=== PATIENT | female | born 1995 | race Caucasian/White ===

== ENCOUNTER 2016-06-23 21:24 | Emergency (ER) | payer BC, OTHER ==
[2016-06-23] MEDS ORDERED: HALOPERIDOL LACTATE 5 MG/ML 1 ML VIAL ONE (21:33)
[2016-06-23] MEDS ORDERED: LORAZEPAM 2 MG/ML 1 ML VIAL ONE (21:33)
[2016-06-23] MEDS ORDERED: HALOPERIDOL LACTATE 5 MG/ML 1 ML VIAL IM STA (21:34)
[2016-06-23] MEDS ORDERED: LORAZEPAM 2 MG/ML 1 ML VIAL IM ONE (21:45)
[2016-06-23 21:51] VITALS: O2SAT 95
[2016-06-23 21:54] VITALS: TEMP 36.7
[2016-06-23 22:01] LABS: BLOOD UREA NITROGEN 4 mg/dl (7-18); BUN/CREATININE RATIO 5.4 (10-20); CALCIUM 8.9 mg/dl (8.5-10.1); CARBON DIOXIDE 24 mmol/L (21-32); CHLORIDE 109 mmol/L (98-107); CREATININE 0.76 mg/dl (0.60-1.20); GLUCOSE 104 mg/dl (70-99); POTASSIUM 3.6 mmol/L (3.5-5.1); SODIUM 141 mmol/L (136-145)
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
[2016-06-24 07:06] VITALS: BP 100/70; PULSE 88; O2SAT 99
== END 2016-06-24 07:08 | disposition home or self-care (01) ==
LOC: C.EDB 21:27
DX: T51.91XA Toxic effect of unspecified alcohol, accidental (unintentional), initial encounter (principal)

== ENCOUNTER 2019-06-15 08:38 | Inpatient (IN) ==
[2019-06-15] MEDS: LACTATED RINGER'S 1,000 ML IV PRN ×4 (08:53→22:29)
[2019-06-15 09:39] LABS: Appearance Urine Clear (Clear); Bacteria Urine Automated Negative (Negative); Bilirubin Urine Negative (Negative); Blood Urine Negative (Negative); Cast Urine Automated 0 /lpf (0-5); Color Urine Yellow; Glucose Urine UA Negative (Negative); Ketones Urine Negative (Negative); Leukocyte Esterase Urine 2+ (Negative); Nitrite Urine Negative (Negative); Protein Urine Negative (Negative); RBC Urine Automated 0-4 /hpf (0-4); Specific Gravity Urine 1.006 (1.000-1.030); Urobilinogen Urine Negative (Negative)
[2019-06-15] MEDS ORDERED: OXYTOCIN 30 UNITS/500 ML BAG IV PRN (11:23)
--- NOTE | 2019-06-15 11:25 | History & Physical Report ---
Date of Service June 15, 2019 Assessment & Plan (1) Supervision of normal first : Patient is a 23 yo here for Labor. -GBS- , Bloodtype O+ -Amoxicillin 500mg BID x 5 days for treatment of UTI -Pitocin for contraction augmentation -Patient desires epidural; will consult anaesthesia when contractions become painful -Anticipate vaginal delivery. (2) UTI (urinary tract infection): History of Present Illness Chief Complaint: R/O Labor Primary Care Provider: Za Gandara MD Patient is a 23 at 40W and 4D by US 11/06/18 presenting for r/o of labor. Patient had plans for an induction on 06/17/19 for post dates. Her course has been relatively uncomplicated. She has been having contractions lasting roughly 45 seconds every 5-7 minute since 4AM this morning. She has noted continued movement. Denies any fluid or vaginal blood loss. Of note, patient states she has been having increased frequency and dysuria for the past 2 days. She denies any hematuria. Labs -Blood type: O+ -Antibody screen: Negative -Hgb: Pending -Hct: Pending -Wbc: Pending -Plt: Pending -Rubella: Immune -VDRL/RPR: Nonreactive -Gonorrhea: Not detected -Chlamydia: Not detected -HIV: Negative -HbSAg: Negative -GBS: Negative -Glucose tolerance x2: 1hr GTT 150, 2hr GTT pass -Cell Free DNA Screening: Declined genetic screenings -Maternal Serum AFP: Declined genetic screenings Allergies Allergy/AdvReac Type Severity Reaction Status Date / Time ceftriaxone [From Rocephin] Allergy hives, rash Verified 06/05/19 09:48 Home Medications Home Medications Medication Instructions Recorded Confirmed Type PNV cmb#95-ferrous fumarate-FA 1 tab PO DAILY 05/20/19 06/15/19 History [] ferrous sulfate [iron] 325 mg PO DAILY 05/20/19 06/15/19 History ascorbic acid (vitamin C) [Vitamin 500 mg PO DAILY 06/15/19 06/15/19 History C] cranberry 400 mg PO DAILY 06/15/19 06/15/19 History Patient History Medical History Abnormal biochemical finding on screening of mother Chlamydia ARVIND I (cervical intraepithelial neoplasia I) HPV (human papilloma virus) infection No acute medical problems Ovarian cyst Varicella vaccine Surgical History S/P cone biopsy of cervix S/P laparoscopy S/P LEEP S/P tonsillectomy S/P wisdom tooth extraction Family History Family/Other No problems noted. Social History Preferred Language: Turkmen Beliefs That Will Affect Care: None marital status: Single marital status details: ALEXA Nguyen (28) [phone] Current Living Situation: Significant Other Current Living Situation Comment: 2 dogs current occupational status: employed current occupation: [employer] Other Information That Helps Us Care for You: No Feels Safe at Home: Yes Safety Concerns: Feels Safe At This Time Smoking Status: Former smoker Tobacco Type: cigarettes ; Do You Dip or Chew Tobacco: No ; Second Hand Exposure: No ; Hx Alcohol Use: No Hx Substance Use: No Childhood Exposure to Second-Hand Smoke: No OB History Primigravida status [employer] History Hx of LEEP in 2016 Hx Ovarian Cysts Review of Systems no fever, no chills and no weakness no worsening vision no dizziness no cough and no dyspnea no chest pain, no dyspnea and no palpitations no abdominal pain, no nausea, no vomiting, no constipation and no diarrhea/loose stools + dysuria and + urinary frequency; no hematuria no headache(s) Physical Exam Constitutional: WD/WN, vitals as above Eyes: PERRL, conjunctivae normal, anicteric sclerae ENMT: external ear and nose normal, oropharynx normal Neck: normal visual inspection Respiratory: normal respiratory effort, lungs clear to auscultation Cardiovascular: Rate/Rhythm: regular rate and regular rhythm Heart Sounds: normal S1 and normal S2; no murmur Extremities: no calf tenderness and no edema Gastrointestinal (Abdomen): Inspection/Auscultation: + abdomen distended (Gravid) and normal bowel sounds Percussion/Palpation: abdomen soft; abdomen nontender Contractions palpable. Psychiatric: A+Ox3, euthymic affect Genitourinary: OB Exam Abdomen: + fundal height (Term), + heart tones, + vertex and + estimated weight (7 lbs) Manual OB Exam: + cervical dilation fingertip, + cervical effacement 100% and + station -2 OB Exam Monitor Tracing: + category II and + variable decelerations Results & Data Vital Signs (Past 12 Hours) Vital Signs Temp Pulse Resp BP 06/15/19 08:55 36.8 C 22 06/15/19 08:49 36.8 C 101 H 22 126/89 Code Status & VTE Plan VTE Prophylaxis Plan VTE Prophylaxis will be ordered: No Reason for no VTE drug order: Contraindicated Monitoring External Monitor Category 2, some variable decels noted. FHR 132 bpm Supervising Physician Co-Signing Physician Notes Patient seen and evaluated and agree with the above findings and plan. Coding Level of Care Code None Diagnoses Supervision of normal first Z34.00 UTI (urinary tract infection) N39.0 Resident Activity Tracking Resident Involvement: Resident Care Provided Care Provided: OB Delivery
[2019-06-15 11:47] LABS: Hematocrit (blood only) 37.8 % (37-47); Hemoglobin 12.7 g/dL (12.0-16.0); Mean Corpuscular Hemoglobin 30.9 pg (25-34); Mean Platelet Volume 9.3 fL (7.4-10.4); Platelet Count 203 K/uL (130-400); RDW Standard Deviation 43.5 fL (36.4-46.3); Red Blood Count 4.11 M/uL (4.2-5.4); White Blood Count 13.68 K/uL (4.8-10.8)
[2019-06-15] MEDS: OXYTOCIN 30 UNITS/500 ML BAG IV PRN ×2 (11:51→20:05)
[2019-06-15] MEDS: AMOXICILLIN 500 MG CAP PO SCH ×2 (11:57→21:00)
[2019-06-15 12:04] LABS: Mean Corpuscular Hgb Conc 33.6 g/dL (32-36)
[2019-06-15] MEDS ORDERED: ePHEDrine sulfate 50 MG/ML AMP ONE (12:43)
[2019-06-15] MEDS ORDERED: fentaNYL citrate 100 MCG/2 ML VIAL ONE (12:43)
[2019-06-15] MEDS ORDERED: BUPIVACAINE 0.25% 30 ML VIAL ONE (12:44)
[2019-06-15] MEDS ORDERED: fentaNYL 2MCG/ML ROPIV 1.25MG/ML 100 ML BAG EPI ONE (12:44)
[2019-06-15] MEDS ORDERED: ONDANSETRON INJ 2 MG/ML 2 ML VIAL IV PRN (13:14)
[2019-06-15] MEDS ORDERED: NALOXONE HCL 0.4 MG/1 ML VIAL/CARP IV PRN (13:14)
[2019-06-15] MEDS ORDERED: ePHEDrine sulfate 50 MG/ML AMP IV PRN (13:14)
[2019-06-15] MEDS ORDERED: NALBUPHINE HCL INJ 10 MG/ML AMP IV PRN (13:14)
[2019-06-15] MEDS ORDERED: NALOXONE HCL 1 MG in SODIUM CHLORIDE 0.9% 1000ML 1,000 ML IV PRN (13:14)
[2019-06-15] MEDS ORDERED: DiphenhydrAMINE HCL 50 MG/ML VIAL IV PRN (13:14)
--- NOTE | 2019-06-15 13:19 | Anesthesiology Consultation ---
Date of Service June 15, 2019 Assessment & Plan Chart Review Chart Review: Patient NOT seen in Pre Admission Testing and Acceptable Risk for Labor Epidural Consults Requested none ASA ASA2 Proposed Anesthesia Anesthesia Type: Labor Epidural and CSE Risk / Benefits Reviewed With: PT / POA / Parent / Guardian, Accepts Plan and Informed Consent Obtained History Height/Weight Height: 5 ft 3 in Weight: 73.936 kg Allergies Allergy/AdvReac Type Severity Reaction Status Date / Time ceftriaxone [From Rocephin] Allergy hives, rash Verified 06/05/19 09:48 Medications Home Medications Medication Instructions Recorded Confirmed Last Taken PNV cmb#95-ferrous fumarate-FA 1 tab PO DAILY 05/20/19 06/15/19 06/14/19 22:30 [] ferrous sulfate [iron] 325 mg PO DAILY 05/20/19 06/15/19 06/14/19 22:30 ascorbic acid (vitamin C) [Vitamin 500 mg PO DAILY 06/15/19 06/15/19 06/14/19 22:30 C] cranberry 400 mg PO DAILY 06/15/19 06/15/19 06/15/19 06:00 Active Medications Generic Name Dose Route Start Last Admin Trade Name Freq PRN Reason Stop Dose Admin Amoxicillin 500 mg 06/15/19 11:00 06/15/19 11:57 Amoxil PO 06/20/19 10:59 500 mg BID JUDI Administration Oxytocin 30 units in 500 mls @ 4 mls/hr 06/15/19 11:20 06/15/19 12:30 Pitocin IV 06/17/19 11:19 0.24 units/hr .Q24H PRN 4 mls/hr Labor Induction/Augmentation Titration Protocol 0.24 UNITS/HR Lactated Ringer's 1,000 mls @ 125 mls/hr 06/15/19 11:23 06/15/19 12:43 Lr IV 06/17/19 11:22 999 mls/hr .Q8H PRN Administration L&D Protocol Protocol NPO Date Last Intake of Fluids: 06/15/19 Time Last Intake of Fluids: 11:00 Date Last Intake of Solids: 06/15/19 Time Last Intake of Solids: 08:00 Past Medical History Medical History Abnormal biochemical finding on screening of mother Chlamydia ARVIND I (cervical intraepithelial neoplasia I) HPV (human papilloma virus) infection No acute medical problems Ovarian cyst Varicella vaccine Exercise / Class Metabolic Activity II 4-5 Yardwork/Stairs/Walk up hill Past Family History Family History Family/Other No problems noted. Past Surgical History Surgical History S/P cone biopsy of cervix S/P laparoscopy S/P LEEP S/P tonsillectomy S/P wisdom tooth extraction Past Anesthesia History No Hx of Anesthesia Complications and No Family Hx of Anesthesia Complications History of PONV No Hx of PONV and No Hx of Motion Sickness Social History Smoking Status: Former smoker tobacco type: cigarettes Do You Dip or Chew Tobacco: No Hx Alcohol Use: No Hx Substance Use: No substance use type: does not use Review of Systems no chest pain or sob Physical Exam Vital Signs Last Vital Signs Temp 36.8 C 06/15/19 08:55 Pulse 100 H 06/15/19 13:11 Resp 22 06/15/19 08:55 BP 116/75 06/15/19 13:02 Pulse Ox 99 06/15/19 13:11 ENMT Mouth: no TMJ abnormality Thyromental Distance: > or= 3.5 Finger Breadths Mallampati Class: II Neck normal visual inspection Respiratory normal respiratory effort Auscultation: lungs clear to auscultation bilaterally Cardiovascular Rate/Rhythm: regular rate and regular rhythm Musculoskeletal Spine: normal cervical ROM Neurologic moves all extremities Psychiatric Orientation: alert and oriented x 3 Testing Laboratory Results 06/15/19 11:34 Urine Color Yellow 06/15/19 09:30 Urine Appearance Clear (Clear) 06/15/19 09:30 Urine pH 7.0 (4.5-7.5) 06/15/19 09:30 Ur Specific [place] 1.006 (1.000-1.030) 06/15/19 09:30 Urine Protein Negative (Negative) 06/15/19 09:30 Urine Glucose (UA) Negative (Negative) 06/15/19 09:30 Urine Ketones Negative (Negative) 06/15/19 09:30 Urine Nitrite Negative (Negative) 06/15/19 09:30 Ur Leukocyte Esterase 2+ (Negative) H 02/17/20 09:30 Urine WBC (Auto) 10-30 /hpf (0-5) H 06/15/19 09:30 Urine RBC (Auto) 0-4 /hpf (0-4) 06/15/19 09:30 U Hyaline Cast (Auto) 0 /lpf (0-5) 06/15/19 09:30 U Epithel Cells (Auto) 5-10 /lpf (0-5) H 06/15/19 09:30 Urine Bacteria (Auto) Negative (Negative) 06/15/19 09:30
--- NOTE | 2019-06-15 16:04 | Labor Progress Brief Note ---
Date of Service June 15, 2019 Subjective Reason For Note: Routine Evaluation Assessment & Plan (1) Supervision of normal first : 23yo G1. Early labor/ IOL 1. Fetus: Cat 1 2. Labor: Continue oxytocin. ROM - Mec 3. GBS negative (2) UTI (urinary tract infection): Physical Exam Genitourinary: Manual OB Exam: + cervical dilation 2 cm, + cervical effacement 100%, + station -2 and + amniotic fluid meconium OB Exam Monitor Tracing: + external FHT monitor used, + external uterine monitor used, + category I and + normal FHT variability; no early decelerations present, no late decelerations present and no variable decelerations Results & Data Vital Signs (Past 12 Hours) Vital Signs Temp Pulse Resp BP Pulse Ox 06/15/19 15:56 92 H 96 06/15/19 15:51 95 H 128/78 97 06/15/19 15:46 88 92 06/15/19 15:41 94 H 96 06/15/19 15:37 88 104/64 06/15/19 15:36 92 H 95 06/15/19 15:31 79 95 06/15/19 15:26 90 95 06/15/19 15:21 91 H 114/56 L 95 06/15/19 15:16 95 H 94 06/15/19 15:11 78 94 06/15/19 15:06 78 109/66 96 06/15/19 15:03 36.7 C 16 06/15/19 15:01 95 H 97 06/15/19 14:56 104 H 98 06/15/19 14:51 81 98 06/15/19 14:50 86 124/76 06/15/19 14:46 92 H 98 06/15/19 14:41 91 H 96 06/15/19 14:36 91 H 96 06/15/19 14:35 91 H 129/81 06/15/19 14:31 94 H 96 06/15/19 14:26 101 H 95 06/15/19 14:22 91 H 94 06/15/19 14:21 89 94 06/15/19 14:18 84 126/74 06/15/19 14:17 88 94 06/15/19 14:16 82 95 06/15/19 14:12 90 123/79 06/15/19 14:11 89 98 06/15/19 14:07 100 H 123/77 06/15/19 14:06 99 H 96 06/15/19 14:01 81 125/81 95 06/15/19 13:59 83 121/77 06/15/19 13:57 92 H 126/76 06/15/19 13:56 96 H 95 06/15/19 13:55 97 H 124/89 06/15/19 13:53 102 H 126/78 06/15/19 13:51 99 H 125/74 96 06/15/19 13:49 101 H 115/69 06/15/19 13:47 105 H 123/70 06/15/19 13:46 106 H 97 06/15/19 13:45 96 H 117/68 06/15/19 13:43 105 H 119/68 06/15/19 13:41 93 H 124/68 97 06/15/19 13:39 98 H 120/69 94 06/15/19 13:37 93 H 112/55 L 06/15/19 13:36 95 H 96 06/15/19 13:35 102 H 119/69 06/15/19 13:33 96 H 131/67 06/15/19 13:31 95 H 98 06/15/19 13:30 92 H 128/66 06/15/19 13:26 90 99 06/15/19 13:23 100 H 135/88 06/15/19 13:21 104 H 100 06/15/19 13:16 100 H 97 06/15/19 13:11 100 H 99 06/15/19 13:06 90 98 06/15/19 13:02 99 H 116/75 06/15/19 13:01 105 H 98 06/15/19 11:56 98 H 121/75 06/15/19 08:55 36.8 C 22 06/15/19 08:49 36.8 C 101 H 22 126/89 Coding Level of Care Code None Diagnoses Supervision of normal first Z34.00 UTI (urinary tract infection) N39.0
[2019-06-15] MEDS: fentaNYL 2MCG/ML ROPIV 1.25MG/ML 100 ML BAG EPI PRN (20:42)
--- NOTE | 2019-06-15 20:56 | Labor Progress Brief Note ---
Date of Service June 15, 2019 Subjective Reason For Note: Routine Evaluation Assessment & Plan (1) Supervision of normal first : 23yo G1. Early labor/ IOL 1. Fetus: Cat 1 2. Labor: Progressing well. Continue oxytocin. ROM - Mec 3. GBS negative (2) UTI (urinary tract infection): Physical Exam Genitourinary: Manual OB Exam: + cervical dilation 5 cm, + cervical effacement 100%, + station 0 and + amniotic fluid meconium OB Exam Monitor Tracing: + external FHT monitor used, + external uterine monitor used, + category I and + normal FHT variability; no early decelerations present, no late decelerations present and no variable decelerations Results & Data Vital Signs (Past 12 Hours) Vital Signs Temp Pulse Resp BP Pulse Ox 06/15/19 20:52 104 H 88 L 06/15/19 20:51 103 H 134/84 94 06/15/19 20:46 90 96 06/15/19 20:41 89 96 06/15/19 20:37 83 114/61 06/15/19 20:36 86 93 06/15/19 20:31 98 H 95 06/15/19 20:26 85 92 06/15/19 20:21 93 H 94 06/15/19 20:20 96 H 100/56 L 06/15/19 20:16 97 H 94 06/15/19 20:11 93 H 93 06/15/19 20:07 36.6 C 06/15/19 20:06 84 94 06/15/19 20:05 86 105/55 L 06/15/19 20:01 89 93 06/15/19 19:56 81 93 06/15/19 19:51 85 94 06/15/19 19:50 83 105/56 L 06/15/19 19:46 87 92 06/15/19 19:41 86 92 06/15/19 19:36 86 93 06/15/19 19:35 77 105/59 L 06/15/19 19:31 83 93 06/15/19 19:26 102 H 96 06/15/19 19:21 99 H 118/68 95 06/15/19 19:16 87 95 06/15/19 19:11 94 H 94 06/15/19 19:10 36.7 C 94 H 16 122/79 06/15/19 19:06 93 H 94 02/17/20 19:05 91 H 122/79 20 19:01 93 H 96 20 18:56 89 94 20 18:52 88 117/67 20 18:51 88 95 20 18:46 90 94 20 18:41 97 H 95 20 18:36 90 116/76 95 20 18:31 91 H 95 20 18:26 104 H 96 20 18:21 88 121/74 93 06/15/19 18:16 106 H 95 06/15/19 18:11 103 H 95 06/15/19 18:06 98 H 96 06/15/19 18:05 103 H 125/80 06/15/19 18:01 109 H 95 06/15/19 17:56 36.7 C 98 H 18 95 06/15/19 17:51 92 H 95 06/15/19 17:50 80 121/75 06/15/19 17:46 92 H 97 20 17:41 92 H 97 20 17:36 91 H 97 20 17:35 99 H 122/73 06/15/19 17:31 94 H 97 06/15/19 17:26 84 96 20 17:21 82 95 20 17:20 87 120/68 20 17:16 80 96 20 17:11 93 H 96 06/15/19 17:06 83 120/75 95 20 17:01 87 95 20 17:00 18 20 16:56 87 96 20 16:51 84 96 1720 16:50 78 110/57 L 20 16:46 92 H 95 1720 16:41 90 93 1720 16:36 85 95 1720 16:35 93 H 117/68 20 16:31 81 95 20 16:26 96 H 97 20 16:21 90 97 20 16:20 92 H 110/62 20 16:16 90 96 06/15/19 16:11 94 H 96 06/15/19 16:06 88 114/61 94 06/15/19 16:01 36.7 C 88 18 96 06/15/19 15:56 92 H 96 06/15/19 15:51 95 H 128/78 97 06/15/19 15:46 88 92 06/15/19 15:41 94 H 96 06/15/19 15:37 88 104/64 06/15/19 15:36 92 H 95 06/15/19 15:31 79 95 06/15/19 15:26 90 95 06/15/19 15:21 91 H 114/56 L 95 06/15/19 15:16 95 H 94 06/15/19 15:11 78 94 06/15/19 15:06 78 109/66 96 06/15/19 15:03 36.7 C 16 06/15/19 15:01 95 H 97 06/15/19 14:56 104 H 98 06/15/19 14:51 81 98 06/15/19 14:50 86 124/76 06/15/19 14:46 92 H 98 06/15/19 14:41 91 H 96 06/15/19 14:36 91 H 96 06/15/19 14:35 91 H 129/81 06/15/19 14:31 94 H 96 06/15/19 14:26 101 H 95 06/15/19 14:22 91 H 94 06/15/19 14:21 89 94 06/15/19 14:18 84 126/74 06/15/19 14:17 88 94 06/15/19 14:16 82 95 06/15/19 14:12 90 123/79 06/15/19 14:11 89 98 06/15/19 14:07 100 H 123/77 06/15/19 14:06 99 H 96 06/15/19 14:01 81 125/81 95 06/15/19 13:59 83 121/77 06/15/19 13:57 92 H 126/76 06/15/19 13:56 96 H 95 06/15/19 13:55 97 H 124/89 06/15/19 13:53 102 H 126/78 06/15/19 13:51 99 H 125/74 96 06/15/19 13:49 101 H 115/69 06/15/19 13:47 105 H 123/70 06/15/19 13:46 106 H 97 06/15/19 13:45 96 H 117/68 06/15/19 13:43 105 H 119/68 06/15/19 13:41 93 H 124/68 97 06/15/19 13:39 98 H 120/69 94 06/15/19 13:37 93 H 112/55 L 06/15/19 13:36 95 H 96 06/15/19 13:35 102 H 119/69 06/15/19 13:33 96 H 131/67 06/15/19 13:31 95 H 98 06/15/19 13:30 92 H 128/66 06/15/19 13:26 90 99 06/15/19 13:23 100 H 135/88 06/15/19 13:21 104 H 100 06/15/19 13:16 100 H 97 06/15/19 13:11 100 H 99 06/15/19 13:06 90 98 06/15/19 13:02 99 H 116/75 06/15/19 13:01 105 H 98 06/15/19 11:56 98 H 121/75 06/15/19 08:55 36.8 C 22 Coding Level of Care Code None Diagnoses Supervision of normal first Z34.00 UTI (urinary tract infection) N39.0
[2019-06-15] MEDS ORDERED: ACETAMINOPHEN 500 MG TAB PO PRN (22:21)
[2019-06-15] MEDS ORDERED: Nursing to Pharmacy Communication ONE (23:38)
[2019-06-16] MEDS: fentaNYL 2MCG/ML ROPIV 1.25MG/ML 100 ML BAG EPI PRN (01:21)
[2019-06-16] MEDS ORDERED: bisacodyL 10 MG SUPP PR PRN (03:05)
[2019-06-16] MEDS ORDERED: DIPHTHERIA/TETANUS/PERTUSSIS 0.5 ML SYR/VIAL IM ONE (03:05)
[2019-06-16] MEDS ORDERED: HYDROCORTISONE ACETATE 25 MG SUPP PR PRN (03:05)
[2019-06-16] MEDS ORDERED: OXYTOCIN 30 UNITS/500 ML BAG IV PRN (03:05)
[2019-06-16] MEDS ORDERED: BENZOCAINE 20% AER SPR 82.5 GM CAN EXT PRN (03:05)
[2019-06-16] MEDS ORDERED: SUPERCREAM 0.870% 15 GM JAR EXT PRN (03:05)
[2019-06-16] MEDS: IBUPROFEN 600 MG TAB PO PRN ×3 (03:59→13:28)
[2019-06-16] MEDS: ACETAMINOPHEN 325 MG TAB PO PRN ×2 (06:13→10:56)
--- NOTE | 2019-06-16 07:28 | Anesthesia Procedure Note ---
Date of Service June 16, 2019 Anesthesia Post Epidural Note Vital Signs Vital Signs: Temp Pulse Resp BP Pulse Ox 98.2 F 91 H 18 112/71 95 06/16/19 06:25 06/16/19 06:25 06/16/19 06:25 06/16/19 06:25 06/16/19 02:56 Pain Intensity Abdomen: Pain Intensity: 1 Notes Mental Status: alert / awake / arousable and participated in evaluation Nausea / Vomiting: adequately controlled Pain: adequately controlled Airway Patency, RR, SpO2: stable & adequate BP & HR: stable & adequate Hydration State: stable & adequate Neuraxial Anesthesia: was administered and sensory block is resolving Anesthetic Complications: no major complications apparent and Pt Satisfied with anesthetic care Epidural: Removed without complications and With tip intact
[2019-06-16] MEDS: PRENATAL VITAMIN 1 TAB PO SCH (07:54)
[2019-06-16] MEDS: DOCUSATE SODIUM 100 MG CAP PO SCH ×2 (07:54→21:12)
[2019-06-16] MEDS: AMOXICILLIN 500 MG CAP PO SCH ×2 (07:55→21:12)
--- NOTE | 2019-06-16 08:48 | Delivery Summary ---
DATE OF OPERATION: 06/16/2019 PROCEDURE: Normal spontaneous vaginal delivery with bilateral periurethral laceration repair. SURGEON: Nahun Smith MD PREOPERATIVE DIAGNOSES: 1. Single intrauterine at term. 2. History of LEEP POSTOPERATIVE DIAGNOSES 1. Single intrauterine at term. 2. History of LEEP 3. Status post delivery. ESTIMATED BLOOD LOSS: 300 mL. DRAINS: None. FLUIDS: Continuous lactated ringer. URINE OUTPUT: Not measured. COMPLICATIONS: None. FINDINGS: Viable female with weight of 6 pounds 11 ounces and Apgars of 8 and 9 at 1 and 5 minutes respectively. DESCRIPTION OF PROCEDURE: The patient progressed to 10 cm dilated, 100% effaced, +2 station, pushed over intact perineum with epidural anesthesia and delivered a viable female with weight and Apgars as noted above. Head of the delivered in TESS position, rest into right transverse. A loose nuchal cord was noted which was easily reduced. Body and shoulders quickly followed. was noted to be vigorous soon after delivery. A 1-minute delayed cord clamping was initiated for which the cord was double clamped and cut. was able to remain on maternal abdomen. Cord blood was obtained. Attention was then turned to deliver the placenta, delivered intact, 3-vessel cord, gentle cord traction. On inspection of perineum, vagina, and cervix, there was noted to be bilateral periurethral lacerations repaired with interrupted stitch. Needle, sponge and instrument counts were correct at the completion of the case. I attest to the content of the Intraoperative Record and any orders documented therein. Any exceptions are noted below. [facility]
[2019-06-17] MEDS: IBUPROFEN 600 MG TAB PO PRN ×3 (00:09→19:18)
[2019-06-17 07:21] LABS: Hematocrit (blood only) 36.3 % (37-47)
--- NOTE | 2019-06-17 08:16 | Obstetrical Progress Note ---
Date of Service June 17, 2019 Assessment & Plan (1) Encounter for care and examination after delivery: satisfactory course discharge to home follow up in 6 weeks Day #:: 2 Subjective Ambulation: ambulating normally Voiding: no voiding problems Passing Gas:: Yes Diet Tolerance:: regular diet Lochia:: Small Feeding Type:: breast feeding Review of Systems All systems reviewed & are unremarkable except as noted in HPI & below Physical Exam Constitutional WD/WN, vitals as above Psychiatric A+Ox3, euthymic affect Genitourinary OB Exam Abdomen: + fundal height Fundus: + firm and + relation to umbilicus (3 below U) Results & Data Vital Signs (Past 12 Hours) Vital Signs Temp Pulse Resp BP Pulse Ox 06/17/19 00:10 98.1 F 80 20 114/77 98
[2019-06-17] MEDS: DOCUSATE SODIUM 100 MG CAP PO SCH ×2 (08:57→20:46)
[2019-06-17] MEDS: PRENATAL VITAMIN 1 TAB PO SCH (08:57)
[2019-06-17] MEDS: AMOXICILLIN 500 MG CAP PO SCH ×2 (08:58→20:47)
[2019-06-17] MEDS ORDERED: bisacodyL 5 MG TABEC PO SCH (20:00)
--- NOTE | 2019-06-18 06:47 | Obstetrical Progress Note ---
Date of Service <Eloy Grijalva DO - Last Filed: 06/18/19 06:46> June 18, 2019 Assessment & Plan <DO Berto Aiken Last Filed: 06/18/19 06:46> (1) Supervision of normal first : -PPD#2 -Vitals reviewed, WNL (Tmax 36.9) - GBS -, Blood Type O+ - Clinically stable. - Feels well today. Eating well, voiding well, ambulating well. - Pain well controlled. - Routine post- care - Continue Amoxicillin for UTI treatment - After discharge will have [address] Sarah Easton #:: 2 Subjective <Eloy Grijalva DO - Last Filed: 06/18/19 06:46> Ambulation: ambulating normally Voiding: no voiding problems Passing Gas:: Yes Diet Tolerance:: regular diet Lochia:: Small Feeding Type:: breast feeding Current Pain Level(1-10): 1 (improved with analgesics) Patient is a 23 PPD#2. Patient states that she is feeling well today and that her pain is well controlled. She has no other complaints at this time. Constitutional: no fever and no chills Respiratory: no cough, no dyspnea and no wheezing Cardiovascular: no chest pain, no dyspnea, no palpitations, no edema and no calf pain Breast: no breast pain Gastrointestinal: no abdominal pain, no nausea and no vomiting Genitourinary (female): no dysuria and no difficulty urinating Neurologic: no headache(s) Physical Exam <DO Berto Aiken Last Filed: 06/18/19 06:46> Constitutional WD/WN, vitals as above Respiratory normal respiratory effort, lungs clear to auscultation Cardiovascular Rate/Rhythm: regular rate and regular rhythm Heart Sounds: normal S1 and normal S2; no click, no gallop, no murmur and no cardiac rub Extremities: + edema (+1); no calf tenderness Gastrointestinal (Abdomen) Inspection/Auscultation: abdomen normal to inspection and normal bowel sounds Percussion/Palpation: abdomen soft; abdomen nontender Genitourinary OB Exam Abdomen: + fundal height Fundus: + firm and + relation to umbilicus (2cm below); not tender and not boggy Results & Data <Eloy Hernandezlino DO Thomson Last Filed: 06/18/19 06:46> Vital Signs (Past 12 Hours) Vital Signs Temp Pulse Resp BP Pulse Ox 06/18/19 00:10 36.8 C 81 20 123/75 100 <Anna Marie Mario DO - Last Filed: 06/18/19 07:25> Co-Signing Physician Notes Resident Physician Supervision Note: I interviewed and examined the patient. Discussed with Dr. Grijalva and agree with findings and plan as documented in the note. Any exceptions or clarifications are listed here: PPD#2 doing well. DC home today. Instructions reviewed. Documented By: Anna Marie Mario DO Resident Activity Tracking <Eloy Grijalva DO - Last Filed: 06/18/19 06:46> Resident Involvement: Resident Care Provided Care Provided: OB Delivery
[2019-06-18] MEDS: AMOXICILLIN 500 MG CAP PO SCH (09:03)
[2019-06-18] MEDS: DOCUSATE SODIUM 100 MG CAP PO SCH (09:03)
[2019-06-18] MEDS: PRENATAL VITAMIN 1 TAB PO SCH (09:03)
== END 2019-06-18 14:30 | disposition home or self-care (01) | DRG 806 ==
LOC: OPB 08:38 → 4S1 08:39 → 4S2 06-16 06:15

== ENCOUNTER 2021-06-20 07:39 | Inpatient (IN) ==
[2021-06-20] MEDS ORDERED: OXYTOCIN 30 UNITS/500 ML BAG IV PRN ×3 (08:47→19:11)
--- NOTE | 2021-06-20 09:14 | History & Physical Report ---
Date of Service June 20, 2021 Assessment & Plan (1) Polyhydramnios: (2) Gestational diabetes: (3) Supervision of normal intrauterine in multigravida: Plan: Irina is a 25-year-old 001 at 39 weeks 2 days gestational age presents for induction of labor secondary to mild polyhydramnios. 1. Fetus: Cat 1 2. Labor: S/p subramanian. Pitocin per regular protocol 3. GBS negative. 4. Vitals WNL 5. A1gDM: BG x1 Admission and Anticipated Discharge Date Admission Date: June 20, 2021 History of Present Illness Primary Care Provider: Za Gandara MD Irina is a 25-year-old 001 admitted at 39 weeks 2 days gestational age for induction of labor secondary to mild polyhydramnios. Patient doing well today denying significant labor symptoms. also complicated by diet- controlled gestational diabetes. Patient has a history of a prior vaginal delivery without complication. OB Labs: Blood Type O Positive 11/18/20 Antibody Screen NEGATIVE 11/18/20 Hemoglobin 12.3 g/dL (12.0-16.0)B 04/07/21 Hematocrit 36.9 % (37-47) L 04/07/21 Mean Corpuscular Volume 91.2 fL (80-100) 11/18/20 Platelet Count 326 K/uL (130-400) 11/18/20 Rubella IgG Antibody Immune (Immune) 11/18/20 Rapid Plasma Reagin Nonreactive (Nonreactive) 11/18/20 Hepatitis B Surface Antigen Neg (Neg) 11/18/20 HIV (1&2) Ab and P24 Ag, 4th Gener Neg (Neg) 11/18/20 Glucose 1 Hour 50 gm Load 140 mg/dl (70-130) H 01/23/21 OB Optional Labs: Chlamydia trachomatis RNA NOT DETECTED (NOT DETECTED) 11/18/20 Neisseria gonorrhoeae RNA NOT DETECTED (NOT DETECTED) 11/18/20 Thyroid Stimulating Hormone (TSH) 1.390 uIu/ml (0.300-4.500) 03/21/18 Labs Reviewed: SMA/CF/cfDNA declined - SLN failed 28 week 2 hr gtt--akh Allergies Allergy/AdvReac Type Severity Reaction Status Date / Time ceftriaxone [From Rocephin] Allergy hives, rash Verified 06/19/21 09:55 Home Medications Medication Instructions Recorded Confirmed Type ascorbic acid (vitamin C) 500 mg 500 mg PO DAILY 06/15/19 06/20/21 History tablet (Vitamin C) prenat.vits,vishal,wkv-fjxc-eudci 1 tab PO DAILY 11/07/20 06/20/21 History acetone (urine) test (Ketone Urine #50 ea 03/14/21 06/19/21 Rx Test) blood sugar diagnostic (OneTouch #150 ea 03/14/21 06/19/21 Rx Verio test strips) blood-glucose meter (OneTouch #1 ea 03/14/21 06/19/21 Rx Verio Flex meter) lancets 33 gauge (OneTouch Delica #150 ea 03/14/21 06/19/21 Rx Plus Lancet) Patient History Medical History Abnormal biochemical finding on screening of mother Chlamydia ARVIND I (cervical intraepithelial neoplasia I) HPV (human papilloma virus) infection No acute medical problems Ovarian cyst anxiety Varicella vaccine Surgical History S/P cone biopsy of cervix S/P laparoscopy S/P LEEP S/P tonsillectomy S/P wisdom tooth extraction Family History Family/Other No problems noted. Social History Smoking Status: Never smoker Second Hand Exposure: No; Hx Alcohol Use: No Hx Substance Use: No Preferred Language: Romansh Communication Ability: Effective Visual Impairment: No Limitations Division Traffic Superintendent Required: No Beliefs That Will Affect Care: None marital status: Single marital status details: ALEXA Nguyen (30) [phone] Current Living Situation: Significant Other Current Living Situation Comment: lives with daphnie, daughter, 1dog, 3 cats, current occupational status: employed current occupation: [employer] Other Information That Helps Us Care for You: No Feels Safe at Home: Yes Childhood Exposure to Second-Hand Smoke: No Assistive Devices: None Physical Exam Gastrointestinal (Abdomen): Inspection/Auscultation: abdomen not distended Percussion/Palpation: abdomen soft; abdomen nontender, no guarding and abdomen not rigid Genitourinary: normal external appearance OB Exam Abdomen: + vertex (BY US) Manual OB Exam: + cervical dilation (2.5), + cervical effacement 50% and + station high OB Exam Monitor Tracing: + external FHT monitor used, + external uterine monitor used, + category I and + normal FHT variability; no early decelerations present, no late decelerations present and no variable decelerations Results & Data ([facility]) Vital Signs (Past 12 Hours) Vital Signs Temp Pulse Resp BP 06/20/21 07:58 114 H 120/66 06/20/21 07:51 36.9 C 114 H 18 120/66 Coding Level of Care Code None Diagnoses Polyhydramnios O40.9XX0 Gestational diabetes O24.419 Supervision of normal intrauterine in multigravida Z34.80
[2021-06-20 09:28] LABS: Hematocrit (blood only) 32.2 % (37-47); Hemoglobin 10.7 g/dL (12.0-16.0); Mean Corpuscular Hemoglobin 30.1 pg (25-34); Mean Corpuscular Hgb Conc 33.2 g/dL (32-36); Mean Corpuscular Volume 90.7 fL (80-100); Mean Platelet Volume 8.9 fL (7.4-10.4); Platelet Count 202 K/uL (130-400); RDW Coefficient of Variation 13.6 % (11.5-14.5); Red Blood Count 3.55 M/uL (4.2-5.4); White Blood Count 10.59 K/uL (4.8-10.8)
[2021-06-20] MEDS: LACTATED RINGER'S 1,000 ML IV PRN ×2 (09:35→15:44)
--- NOTE | 2021-06-20 13:10 | Labor Progress Brief Note ---
Date of Service June 20, 2021 Subjective Reason For Note: Routine Evaluation Assessment & Plan (1) Polyhydramnios: (2) Gestational diabetes: (3) Supervision of normal intrauterine in multigravida: Plan: Irina is a 25-year-old 001 at 39 weeks 2 days gestational age presents for induction of labor secondary to mild polyhydramnios. 1. Fetus: Cat 1 2. Labor: S/p subramanian. Pitocin per regular protocol. Unable to AROM due to high station 3. GBS negative. 4. Vitals WNL 5. A1gDM: BG x1 Admission and Anticipated Discharge Date Admission Date: June 20, 2021 Physical Exam Genitourinary: Manual OB Exam: + cervical dilation 3 cm, + cervical effacement 50% and + station high OB Exam Monitor Tracing: + external FHT monitor used, + external uterine monitor used, + category I and + normal FHT variability; no early decelerations present, no late decelerations present and no variable decelerations Results & Data ([facility]) Vital Signs (Past 12 Hours) Vital Signs Temp Pulse Resp BP 06/20/21 12:02 100 H 115/59 L 06/20/21 11:20 37.0 C 06/20/21 11:19 100 H 116/59 L 06/20/21 09:39 111 H 129/68 06/20/21 07:58 114 H 120/66 06/20/21 07:51 36.9 C 114 H 18 120/66 Coding Level of Care Code None Diagnoses Polyhydramnios O40.9XX0 Gestational diabetes O24.419 Supervision of normal intrauterine in multigravida Z34.80
[2021-06-20] MEDS ORDERED: ePHEDrine sulfate 50 MG/ML AMP ONE (15:34)
[2021-06-20] MEDS ORDERED: fentaNYL citrate 100 MCG/2 ML VIAL ONE (15:34)
[2021-06-20] MEDS ORDERED: SODIUM CHLORIDE 0.9% INJ 10 ML VIAL ONE (15:34)
[2021-06-20] MEDS ORDERED: BUPIVACAINE 0.25% 30 ML VIAL ONE (15:34)
[2021-06-20] MEDS ORDERED: fentaNYL 2MCG/ML ROPIVACAINE 1.25MG/ML 100 ML BAG EPI ONE (15:35)
[2021-06-20] MEDS ORDERED: NALOXONE HCL 1 MG in SODIUM CHLORIDE 0.9% 1000ML 1,000 ML IV PRN (15:54)
[2021-06-20] MEDS ORDERED: ePHEDrine sulfate 50 MG/ML AMP IV PRN (15:54)
[2021-06-20] MEDS ORDERED: ONDANSETRON INJ 2 MG/ML 2 ML VIAL IV PRN (15:54)
[2021-06-20] MEDS ORDERED: NALBUPHINE HCL INJ 10 MG/ML AMP IV PRN (15:54)
[2021-06-20] MEDS ORDERED: diphenhydrAMINE 50 MG/ML VIAL IV PRN (15:54)
[2021-06-20] MEDS ORDERED: fentaNYL 2MCG/ML ROPIVACAINE 1.25MG/ML 100 ML BAG EPI PRN (15:54)
[2021-06-20] MEDS ORDERED: NALOXONE HCL 0.4 MG/1 ML VIAL/CARP IV PRN (15:54)
--- NOTE | 2021-06-20 15:56 | Anesthesiology Consultation ---
Date of Service June 20, 2021 Assessment & Plan (1) Encounter for pre-operative examination: Chart Review Chart Review: Patient NOT seen in Pre Admission Testing and Acceptable Risk for Labor Epidural Consults Requested none History Height/Weight Height: 5 ft 3 in Weight: 78.018 kg Allergies Allergy/AdvReac Type Severity Reaction Status Date / Time ceftriaxone [From Rocephin] Allergy hives, rash Verified 06/19/21 09:55 Medications Home Medications Medication Instructions Recorded Confirmed Last Taken ascorbic acid (vitamin C) 500 mg 500 mg PO DAILY 06/15/19 06/20/21 06/19/21 18:00 tablet (Vitamin C) prenat.vits,vishal,lsg-epjl-haeze 1 tab PO DAILY 11/07/20 06/20/21 Unknown acetone (urine) test (Ketone Urine #50 ea 03/14/21 06/19/21 Unknown Test) blood sugar diagnostic (OneTouch #150 ea 03/14/21 06/19/21 Unknown Verio test strips) blood-glucose meter (OneTouch #1 ea 03/14/21 06/19/21 Unknown Verio Flex meter) lancets 33 gauge (OneTouch Delica #150 ea 03/14/21 06/19/21 Unknown Plus Lancet) Active Medications Generic Name Dose Route Start Last Admin Trade Name Freq PRN Reason Stop Dose Admin Oxytocin 30 units in 500 mls @ 16 mls/hr 06/20/21 08:47 06/20/21 14:34 Pitocin IV 06/22/21 08:46 0.96 units/hr .Q24H PRN 16 mls/hr Labor Induction/Augmentation Titration Protocol 0.96 UNITS/HR Lactated Ringer's 1,000 mls @ 125 mls/hr 06/20/21 09:05 06/20/21 15:44 Lr IV 06/22/21 09:04 999 mls/hr .Q8H PRN Administration L&D Protocol Protocol Past Medical History Medical History Abnormal biochemical finding on screening of mother Chlamydia ARVIND I (cervical intraepithelial neoplasia I) HPV (human papilloma virus) infection No acute medical problems Ovarian cyst anxiety Varicella vaccine Exercise / Class Metabolic Activity II 4-5 Yardwork/Stairs/Walk up hill Past Family History Family History Family/Other No problems noted. Past Surgical History Surgical History S/P cone biopsy of cervix S/P laparoscopy S/P LEEP S/P tonsillectomy S/P wisdom tooth extraction Past Anesthesia History No Hx of Anesthesia Complications and No Family Hx of Anesthesia Complications Social History Smoking Status: Never smoker tobacco type: cigarettes Hx Alcohol Use: No Hx Substance Use: No substance use type: does not use Physical Exam Vital Signs Last Vital Signs Temp 37.0 C 06/20/21 11:20 Pulse 100 H 06/20/21 14:35 Resp 18 06/20/21 07:51 BP 118/68 06/20/21 14:35 Testing Laboratory Results 06/20/21 09:19 Blood Type O Positive 06/20/21 09:19 Antibody Screen NEGATIVE 06/20/21 09:19
--- NOTE | 2021-06-20 18:23 | Labor Progress Brief Note ---
Date of Service June 20, 2021 Subjective Reason For Note: Routine Evaluation Assessment & Plan (1) Polyhydramnios: (2) Gestational diabetes: (3) Supervision of normal intrauterine in multigravida: Plan: Irina is a 25-year-old 001 at 39 weeks 2 days gestational age presents for induction of labor secondary to mild polyhydramnios. 1. Fetus: Cat 1 2. Labor: S/p subramanian. Pitocin per regular protocol. AROM 3. GBS negative. 4. Vitals WNL 5. A1gDM: BG x1 Admission and Anticipated Discharge Date Admission Date: June 20, 2021 Physical Exam Genitourinary: Manual OB Exam: + cervical dilation 5 cm, + cervical effacement 70%, + station -1 and + amniotic fluid OB Exam Monitor Tracing: + external FHT monitor used, + external uterine monitor used and + category I; no normal FHT variability, no early decelerations present, no late decelerations present and no variable decelerations Results & Data ([facility]) Vital Signs (Past 12 Hours) Vital Signs Temp Pulse Resp BP Pulse Ox 06/20/21 18:21 102 H 99 06/20/21 18:16 98 H 96 06/20/21 18:11 107 H 99 06/20/21 18:10 100 H 104/63 06/20/21 18:06 96 H 97 06/20/21 18:01 95 H 98 06/20/21 18:00 18 06/20/21 17:56 86 99 06/20/21 17:55 86 99/57 L 06/20/21 17:51 89 99 06/20/21 17:46 99 H 98 06/20/21 17:45 18 06/20/21 17:41 88 99 06/20/21 17:40 90 98/57 L 06/20/21 17:36 93 H 98 06/20/21 17:31 97 H 98 06/20/21 17:26 96 H 99 06/20/21 17:24 98 H 92/50 L 06/20/21 17:21 90 100 06/20/21 17:16 90 100 06/20/21 17:15 18 06/20/21 17:11 103 H 100 06/20/21 17:10 87 102/61 06/20/21 17:06 103 H 97 06/20/21 17:01 105 H 99 06/20/21 17:00 18 06/20/21 16:56 105 H 98 06/20/21 16:51 97 H 117/68 100 06/20/21 16:46 102 H 117/62 06/20/21 16:45 96 H 18 99 06/20/21 16:40 108 H 119/68 98 06/20/21 16:35 103 H 98 06/20/21 16:34 105 H 130/72 06/20/21 16:32 105 H 130/76 06/20/21 16:30 110 H 18 125/69 99 06/20/21 16:28 97 H 120/67 06/20/21 16:26 96 H 120/65 06/20/21 16:25 103 H 18 98 06/20/21 16:24 106 H 114/64 06/20/21 16:22 91 H 117/61 06/20/21 16:20 94 H 18 122/67 96 06/20/21 16:18 93 H 121/65 06/20/21 16:16 97 H 126/69 06/20/21 16:15 105 H 18 96 06/20/21 16:14 100 H 129/70 06/20/21 16:12 90 126/75 06/20/21 16:10 98 H 99 06/20/21 15:05 37.0 C 06/20/21 14:35 100 H 118/68 06/20/21 13:19 89 108/59 L 06/20/21 12:02 100 H 115/59 L 06/20/21 11:20 37.0 C 06/20/21 11:19 100 H 116/59 L 06/20/21 09:39 111 H 129/68 06/20/21 07:58 114 H 120/66 06/20/21 07:51 36.9 C 114 H 18 120/66 Coding Level of Care Code None Diagnoses Polyhydramnios O40.9XX0 Gestational diabetes O24.419 Supervision of normal intrauterine in multigravida Z34.80
[2021-06-20] MEDS ORDERED: BENZOCAINE 20% AER SPR 82.5 GM CAN EXT PRN (19:11)
[2021-06-20] MEDS ORDERED: HYDROCORTISONE ACETATE 25 MG SUPP PR PRN (19:11)
[2021-06-20] MEDS ORDERED: ACETAMINOPHEN 325 MG TAB PO PRN (19:11)
[2021-06-20] MEDS ORDERED: bisacodyL 10 MG SUPP PR PRN (19:11)
--- NOTE | 2021-06-20 20:44 | Anesthesia Procedure Note ---
Date of Service June 20, 2021 Anesthesia Post Epidural Note Vital Signs Vital Signs: Temp Pulse Resp BP Pulse Ox 37.0 C 99 H 18 121/59 L 99 06/20/21 18:55 06/20/21 20:34 06/20/21 18:55 06/20/21 20:34 06/20/21 19:26 Notes Mental Status: alert / awake / arousable and participated in evaluation Patient Amnestic to Procedure: No Nausea / Vomiting: adequately controlled Pain: adequately controlled Airway Patency, RR, SpO2: stable & adequate BP & HR: stable & adequate Hydration State: stable & adequate Neuraxial Anesthesia: was administered and sensory block is resolving Anesthetic Complications: no major complications apparent and Pt Satisfied with anesthetic care Epidural: Removed without complications and With tip intact
[2021-06-20] MEDS: DOCUSATE SODIUM 100 MG CAP PO SCH (22:40)
--- NOTE | 2021-06-21 00:20 | Delivery Summary ---
DATE OF SERVICE: 06/20/2021 PROCEDURE: Normal spontaneous vaginal delivery. SURGEON: Nahun Smith MD PREOPERATIVE DIAGNOSES: 1. Single intrauterine at 39 weeks 2 days gestational age. 2. Polyhydramnios. 3. Diet-controlled gestational diabetes. POSTOPERATIVE DIAGNOSES: 1. Single intrauterine at 39 weeks 2 days gestational age. 2. Polyhydramnios. 3. Diet-controlled gestational diabetes. 4. Status post procedure. ESTIMATED BLOOD LOSS: 200 mL. DRAINS: None. FLUIDS: Continuous lactated Ringer. URINE OUTPUT: Not measured. COMPLICATIONS: None. FINDINGS: Viable female infant with weight pending, Apgars of 8 and 9 at one and five minutes respec tively. INDICATIONS: The patient is a 25-year-old G2, P1-0-0-1, admitted at 39 weeks 2 days gestational age for induction of labor secondary to polyhydramnios. The patient had a Calixto placed last night, which was noted to be sitting in the vagina at the time of initial evaluation this morning. The patient w as noted to be 2 cm dilated, 50% effaced, negative 3 station at initial evaluation. She was started o n oxytocin per regular protocol. She later received an epidural for anesthesia and underwent artific ial rupture of membranes, after which she progressed in labor rapidly to complete-complete, +1 statio n with an urge to push. The patient pushed for approximately two contractions to achieve delivery. DESCRIPTION OF PROCEDURE: The patient progressed to 10 cm dilated, 100% effaced, positive 1 station, pushed over intact perineum with epidural anesthesia and delivered a viable female , weight an d Apgars as noted above. Head of the delivered in TESS position, restituted to right transver se. A single nuchal was noted, which was easily reduced. Body and shoulders quickly followed. Neon ate was noted to be vigorous shortly after delivery and a 1 minute delayed cord clamping was initiate d. The cord was then double clamped and cut. remained on maternal abdomen. Cord blood was obtained. Attention was then turned to delivery of the placenta, which was delivered intact, 3-vessel cord, gen tle cord traction. On inspection of the perineum, vagina, and cervix, there was noted to be no lacer ations. Sponge and instrument counts were correct at the completion of the case. Both mother and ne josiah were stable in the immediate post-delivery period. Job ID: [id number]
[2021-06-21] MEDS: IBUPROFEN 600 MG TAB PO PRN ×2 (03:43→08:03)
[2021-06-21 07:08] LABS: Hematocrit (blood only) 31.1 % (37-47); Hemoglobin 10.3 g/dL (12.0-16.0)
--- NOTE | 2021-06-21 07:41 | Obstetrical Progress Note ---
Date of Service June 21, 2021 Assessment & Plan (1) Encounter for care and examination after delivery: Plan: 25yo PPD 1 s/p at 39 weeks 2 days. -Continue routine care -Vitals reviewed- HDS, afebrile -Encourage ambulation, regular diet -Pain control with ibuprofen, acetaminophen PRN -Encourage -Hgb 10.3, stable -f/u in 6 weeks with OB (2) Polyhydramnios: (3) Gestational diabetes: Admission and Anticipated Discharge Date Admission Date: June 20, 2021 Supervising Physician Co-Signing Physician Notes Patient seen and evaluated and agree with the above findings and plan. Stable for discharge Subjective Ambulation: yes Voiding: yes Passing Gas: not yet BM: not yet Diet Tolerance: regular w/o N/V Lochia: small Feeding Type: breast (w/pump) Current Pain Level(1-10): 3 Review of Systems Review of Systems: Denies fevers/chills. Denies dyspnea, cough. Denies chest pain. +mild nipple pain Denies dysuria. Denies headache. Denies back pain. Physical Exam Physical Exam: General: Alert, oriented, no acute distress Cardiac: Regular rate and rhythm. No murmurs appreciated. Respiratory: Clear to auscultation b/l with good air flow entry, symmetric chest rise and fall. No wheezes or crackles. No increased work of breathing or accessory muscle use Abdomen: Soft, mild appropriate tenderness, nondistended. Fundus firm and palpable at 1 cm above umbilicus. No guarding or rebound. Skin: No rashes or lesions Extremities: Warm, dry, well-perfused. No lower extremity erythema with trace edema bilaterally. No calf tenderness. Results & Data ([facility]) Vital Signs (Past 12 Hours) Vital Signs Temp Pulse Pulse Resp BP BP Pulse Ox 06/21/21 03:30 36.7 C 84 18 106/63 97 06/20/21 23:00 36.8 C 90 18 118/63 97 06/20/21 21:50 36.7 C 107 H 18 118/75 98 06/20/21 21:34 95 H 109/58 L 06/20/21 21:30 18 06/20/21 21:24 100 H 103/53 L 06/20/21 21:20 18 06/20/21 21:14 100 H 110/54 L 06/20/21 21:04 97 H 113/57 L 06/20/21 20:54 96 H 118/55 L 06/20/21 20:50 18 06/20/21 20:44 106 H 117/56 L 06/20/21 20:34 99 H 121/59 L 06/20/21 20:24 104 H 133/62 06/20/21 20:20 18 06/20/21 20:15 112 H 117/56 L 06/20/21 20:05 18 06/20/21 20:04 95 H 128/74 06/20/21 19:54 89 130/74 06/20/21 19:50 18 06/20/21 19:45 103 H 118/56 L Resident Activity Tracking Resident Involvement: Resident Care Provided Care Provided: OB Delivery
[2021-06-21] MEDS ORDERED: FERROUS SULFATE 325 MG TAB PO SCH (08:00)
[2021-06-21] MEDS ORDERED: PRENATAL VITAMIN 1 TAB PO SCH (08:00)
[2021-06-21] MEDS: DOCUSATE SODIUM 100 MG CAP PO SCH (08:04)
[2021-06-21] MEDS ORDERED: DIPHTHERIA/TETANUS/PERTUSSIS 0.5 ML SYR/VIAL IM ONE (09:00)
[2021-06-21] MEDS ORDERED: bisacodyL 5 MG TABEC PO SCH (20:00)
== END 2021-06-21 21:10 | disposition home or self-care (01) | DRG 807 ==
LOC: 4S1 07:39 → 4S2 22:07